=== PATIENT | female | born 1960 | race Caucasian/White ===

== ENCOUNTER 2020-03-31 09:53 | Emergency (ER) | payer OTHER ==
--- NOTE | 2020-03-31 10:42 | ERPHSYRPT ---
- History of Present Illness Source: patient Exam Limitations: no limitations Patient Subjective Stated Complaint: fever, cough, headache Triage Nursing Assessment: Pt was brought to the ER by her , hypertensive, cough with light yellow sputum, chest hurts from coughing, pulses normal, rates overall pain as 2/10, diaphoretic Physician History: 59 yo wf w fever/nonproductive cough/PRETTY x 2days. Pt denies Covid exposure/N/V/D/dysuria/hematuria/dyspnea. Timing/Duration: other (2 days) Cough Quality/Degree: dry cough Possible Cause: no prior episodes Modifying Factors: Improves With: nothing Associated Symptoms: fever, chills, cough, headache, muscle aches, No chest pain/soreness, No dizziness, No earache, No facial pain, No lightheadedness, No nasal congestion, No nasal drainage, No shortness of breath, No sinus infection, No sore throat, No wheezing Allergies/Adverse Reactions: amoxicillin [From Augmentin] Adverse Reaction (Verified 03/31/20 10:14) clavulanic acid [From Augmentin] Adverse Reaction (Verified 03/31/20 10:14) Home Medications: Aspirin EC 81 mg [Ecotrin 81 mg] 81 mg PO DAILY 03/31/20 [History] Cetirizine HCl [Zyrtec] 10 mg PO DAILY 03/31/20 [History] Cholecalciferol (Vitamin D3) [Vitamin D3] 1 tab PO DAILY 03/31/20 [History] Losartan Potassium [Cozaar] 25 mg PO DAILY 03/31/20 [History] Montelukast Sodium 10 mg [Singulair 10 MG] 10 mg PO DAILY 03/31/20 [History] Omeprazole 40 mg PO BID 03/31/20 [History] hydroCHLOROthiazide [Hydrochlorothiazide] 25 mg PO DAILY 03/31/20 [History] Travel Risk - International Travel Have you traveled outside of the country in past 3 weeks: No - Coronavirus Screening Are you exhibiting any of the following symptoms?: No Close contact with a COVID-19 positive Pt in past 14-21 Days: No - Review of Systems Constitutional: No Symptoms, Fever, Chills Eyes: No Symptoms Ears, Nose, & Throat: No Symptoms Respiratory: Cough Cardiac: No Symptoms Abdominal/Gastrointestinal: No Symptoms Genitourinary Symptoms: No Symptoms Musculoskeletal: No Symptoms Skin: No Symptoms Neurological: No Symptoms Psychological: No Symptoms Endocrine: No Symptoms Hematologic/Lymphatic: No Symptoms Immunological/Allergic: No Symptoms - Past Medical History Pertinent Past Medical History: Yes Neurological History: No Pertinent History Cardiac History: Arrhythmia Respiratory History: No Pertinent History Endocrine Medical History: No Pertinent History Musculoskeletal History: No Pertinent History Other Medical History: uses CPAP or BiPAP - Past Surgical History Past Surgical History: Yes Gastrointestinal: Cholecystectomy Female Surgical History: Hysterectomy - Social History Smoking Status: Never smoker Exposure to second hand smoke: No Drug Use: none Patient Lives Alone: No - Female History Hx Now: No - Nursing Vital Signs Nursing Vital Signs: Initial Vital Signs Temperature 99.8 F 03/31/20 10:05 Pulse Rate 76 03/31/20 10:05 Blood Pressure 175/86 03/31/20 10:05 O2 Sat by Pulse Oximetry 97 03/31/20 10:05 Pain Scale Pain Intensity 2 - Physical Exam General Appearance: no apparent distress Eye Exam: PERRL/EOMI, eyes nml inspection, No scleral icterus, No pale conjunctivae, No photophobia Ears, Nose, Throat Exam: normal ENT inspection, TMs normal, pharynx normal, moist mucous membranes, No dry mucous membranes Neck Exam: normal inspection, non-tender, No meningismus, No mass, No Brudzinski, No Kernig's, No carotid bruit Respiratory Exam: normal breath sounds, lungs clear, airway intact, No respiratory distress Cardiovascular Exam: regular rate/rhythm, normal heart sounds, normal peripheral pulses, No murmur Back Exam: normal inspection, normal range of motion Extremity Exam: normal inspection, normal range of motion Neurologic Exam: alert, oriented x 3, cooperative, 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, normal mood/affect, nml cerebellar function SpO2: 97 - Course Nursing assessment & vital signs reviewed: Yes - Radiology Exams Chest X-ray Interpretation: Discussed w/ radiologist (NAD) Ordered Tests: Active Orders 24 hr Category Date Time Status CHEST 1 VIEW (PORTABLE) Stat Exams 03/31/20 10:30 Completed INFLUENZA A+B KOURTNEY Stat Lab 03/31/20 10:27 Completed Lab/Rad Data: Laboratory Results 03/31/20 03/31/20 Range/Units Unknown 10:27 Influenza Type A Ag NEGATIVE (NEGATIVE) Influenza Type B Ag NEGATIVE (NEGATIVE) Group A Strep Antibody NOT DETECTED (NEGATIVE) - Progress Air Movement: fair Progress Note: 03/31/20 11:36 Strep/flu neg Covid pending Blood Culture(s) Obtained: No Counseled pt/family regarding: diagnosis, need for follow-up, rad results - Departure Departure Disposition: Home Clinical Impression: Cough Condition: Stable Critical Care Time: No Referrals: JUAN J KING [Primary Care Provider] - Instructions: Cough, Adult (DC), Fever, Adult (DC) Additional Instructions: Your Covid test is pending Quarantine for 14 days Return to ER for worsening cough/shortness of breath/Temperature greater than 100.5 Prescriptions: Doxycycline Monohydrate 100 mg PO BID #14 tablet Hydrocodone/Chlorphen Polis [Tussionex Pennkinetic Susp] 5 ml PO BID PRN PRN #30 ml PRN Reason: Cough
--- NOTE | 2020-03-31 11:15 | XRAY ---
Indication: Cough. Suspect Covid 19. Comparison: None Portable chest demonstrates normal heart and lungs with scattered tiny calcified granulomas. Bony thorax intact with minimal levoscoliosis.
[2020-03-31 11:18] LABS: INFLUENZA A NEGATIVE (NEGATIVE); INFLUENZA B NEGATIVE (NEGATIVE)
[2020-03-31 11:43] VITALS: BP 150/74; PULSE 64
[2020-03-31 11:45] VITALS: O2SAT 97
== END 2020-03-31 11:58 | disposition home or self-care (01) ==
LOC: ED 09:53
DX: R05 Cough (principal); R50.9 Fever, unspecified; R51.9 Headache, unspecified; Z79.899 Other long term (current) drug therapy
CPT/HCPCS: 71045; 87400; 87651; 99284; U0003

== ENCOUNTER 2024-07-07 20:25 | Emergency (ER) | payer OTHER ==
[2024-07-07 20:41] VITALS: TEMP 97.9; O2SAT 93
--- NOTE | 2024-07-07 20:43 | ERPHSYRPT ---
- History of Present Illness Source: patient Exam Limitations: no limitations Patient Subjective Stated Complaint: "I've been sick since last Tuesday with cough, fever, and body aches." Triage Nursing Assessment: Pt presents to ER with complaints of continuous dry hacking cough, fever, body aches, and chills since 06/29/24. Was seen in clinic on Tuesday and given Bactrim and nasal spray Rx. Pt complains of headache from coughing. Pt is alert and oriented x 3. Skin is pink, warm, and dry. Respirations slightly labored. Lungs noted to have slight wheezing on exhalation. States has vomited twice since yesterday, believes it's from how hard she was coughing. Physician History: Patient's had a cough for about a week. She is also had fever. Her cough is getting worse. Is nonproductive and dry. She had a temperature of 100 and for 1 day. She went to her primary doctor and they treated her with Bactrim and Flonase. She has not improved. She says she is low bit short of breath with exertion. She has not had any chest pain or abdominal pain.She did have some episodes of nausea and vomiting earlier in the week but it is resolved. She has some generalized malaise myalgias. Allergies/Adverse Reactions: azithromycin Adverse Reaction (Intermediate, Verified 07/07/24 20:41) skin peels on fingers doxycycline Adverse Reaction (Intermediate, Verified 07/07/24 20:41) skin peels off fingers. amoxicillin [From Augmentin] Adverse Reaction (Verified 07/07/24 20:41) clavulanic acid [From Augmentin] Adverse Reaction (Verified 07/07/24 20:41) Home Medications: Aspirin EC 81 mg [Ecotrin 81 mg] 81 mg PO DAILY 03/31/20 [History] Cetirizine HCl [Zyrtec] 10 mg PO DAILY 03/31/20 [History] Cholecalciferol (Vitamin D3) [Vitamin D3] 1 tab PO WEEKLY 03/31/20 [History] Losartan Potassium [Cozaar] 50 mg PO DAILY 03/31/20 [History] Omeprazole 20 mg PO BID 03/31/20 [History] hydroCHLOROthiazide [Hydrochlorothiazide] 25 mg PO DAILY 03/31/20 [History] estradioL [Estradiol (Once Weekly)] 1 each TD WEEKLY 01/31/23 [History] Smz/Tmp Ds Tablet [Bactrim Ds Tablet] 1 tab PO BID 07/07/24 [History] Hx Tetanus, Diphtheria Vaccination/Date Given: No Hx Influenza Vaccination/Date Given: No Hx Pneumococcal Vaccination/Date Given: No Immunizations Up to Date: No Travel Risk - International Travel Have you traveled outside of the country in past 3 weeks: No - Emerging Infectious Disease Are you exhibiting symptoms associated with any current EIDs: Yes Symptoms: Cough: New Onset, Fever, Headaches/Body Aches/ - Review of Systems Constitutional: Fever, Chills, Fatigue, Malaise Eyes: No Symptoms Respiratory: Cough Cardiac: No Symptoms Musculoskeletal: No Symptoms Skin: No Symptoms Neurological: No Symptoms - Past Medical History Pertinent Past Medical History: Yes Neurological History: No Pertinent History ENT History: No Pertinent History Cardiac History: Arrhythmia, Hypertension Respiratory History: No Pertinent History Endocrine Medical History: No Pertinent History Musculoskeletal History: No Pertinent History GI Medical History: No Pertinent History History: No Pertinent History Female Reproductive Disorders: No Pertinent History Other Medical History: uses CPAP or BiPAP - Past Surgical History Past Surgical History: Yes Neuro Surgical History: No Pertinent History Cardiac: No Pertinent History Respiratory: No Pertinent History Gastrointestinal: Cholecystectomy Genitourinary: No Pertinent History Musculoskeletal: No Pertinent History Female Surgical History: Hysterectomy - Social History Smoking Status: Never smoker Exposure to second hand smoke: No Drug Use: none - Social Determinants of Health Will the patient participate in the screening: Yes Do you worry about a steady place to live?: No Do you have any problems with any of the following?: No known problems In the past 12 months,have you had to go without utilities?: No Transportation Issues: No Has anyone in your support network made you feel unsafe?: No Have you or anyone in your house had to go w/o enough food: No - Nursing Vital Signs Nursing Vital Signs: Initial Vital Signs Temperature 97.9 F 07/07/24 20:31 Pulse Rate 104 H 07/07/24 20:31 Respiratory Rate 18 07/07/24 20:31 Blood Pressure 162/79 07/07/24 20:31 O2 Sat by Pulse Oximetry 95 07/07/24 20:31 Pain Scale Pain Intensity 0 - Physical Exam General Appearance: no apparent distress Eye Exam: PERRL/EOMI, eyes nml inspection Ears, Nose, Throat Exam: normal ENT inspection, TMs normal, pharynx normal Neck Exam: normal inspection, non-tender Respiratory Exam: normal breath sounds, chest tenderness Cardiovascular Exam: regular rate/rhythm, normal heart sounds Gastrointestinal/Abdomen Exam: soft, normal bowel sounds, No tenderness Back Exam: normal inspection Extremity Exam: normal inspection Neurologic Exam: alert Skin Exam: normal color, warm SpO2: 93 - Course Nursing assessment & vital signs reviewed: Yes Ordered Tests: Active Orders 24 hr Category Date Time Status CHEST 1 VIEW (PORTABLE) Stat Exams 07/07/24 20:41 Taken Lab/Rad Data: Laboratory Results 07/07/24 Range/Units 20:45 Influenza Type A Ag POSITIVE A (NEGATIVE) Influenza Type B Ag NEGATIVE (NEGATIVE) RSV (PCR) NEGATIVE (NEGATIVE) SARS-CoV-2 (PCR) NEGATIVE (NEGATIVE) - Progress Progress: re-examined, unchanged Air Movement: good Progress Note: Patient was stable throughout stay. X-ray was done it was independently interpreted by me. There is no acute findings. On the differential diagnosis was bronchitis, pneumonia, flu, RSV, COVID.She tested positive for flu. What is going to treat symptomatically with Tessalon and Tylenol and Advil and fluids 07/07/24 21:37 - Departure Departure Disposition: Home Clinical Impression: Influenza Condition: Stable Critical Care Time: No Referrals: JUAN J KING [Primary Care Provider] - Follow up/PCP as directed Instructions: Flu in adults - ED discharge instructions
[2024-07-07 21:24] LABS: INFLUENZA B NEGATIVE (NEGATIVE); RESPIRATORY SYNCTIAL VIRUS NEGATIVE (NEGATIVE); SARS-CoV-2 Xpert Express NEGATIVE (NEGATIVE)
[2024-07-07 21:27] LABS: INFLUENZA A POSITIVE (NEGATIVE)
[2024-07-07 21:50] VITALS: BP 125/47; PULSE 87; RESP 20
[2024-07-07] MEDS ORDERED: Tessalon Perles 100 MG PO PRN (22:01)
[2024-07-07] MEDS ORDERED: Tessalon Perles 100 MG PO ONE (22:04)
[2024-07-07] MEDS ORDERED: DECADRON 10MG INJ. ONE (22:04)
[2024-07-07] MEDS: Tessalon Perles 100 MG PO PRN (22:10)
[2024-07-07] MEDS: DECADRON 10MG INJ. IM ONE (22:11)
--- NOTE | 2024-07-08 06:28 | XRAY ---
Indication: Cough. Comparison: January 31, 2023 Portable chest remains inflated and clear again with incidental calcified granulomas. Heart not enlarged for AP portable technique. Bony thorax intact. No new/acute findings.
== END 2024-07-07 22:15 | disposition home or self-care (01) ==
LOC: ED 20:25
DX: J10.1 Influenza due to other identified influenza virus with other respiratory manifestations (principal); R05.1 Acute cough; R50.9 Fever, unspecified; M79.10 Myalgia, unspecified site; I10 Essential (primary) hypertension; Z79.899 Other long term (current) drug therapy
CPT/HCPCS: 0241U; 71045; 99284; J1100; A9270-GY

== ENCOUNTER 2024-07-16 10:04 | Emergency (ER) | payer OTHER ==
--- NOTE | 2024-07-16 10:09 | ERPHSYRPT ---
- History of Present Illness Time Seen by Provider: 07/16/24 10:09 Source: patient, family Exam Limitations: no limitations Physician History: This is an obese 64-year-old white female patient who arrives by private vehicle and is a patient of Dr. Davide King. She was seen here in our emergency department on 07/07/2024 and diagnosed with influenza A. She was given Tessalon Perles which did not help her and therefore she was given Tussionex which did help her cough. However, her cough has persisted and she is mildly short of breath. Her room air oxygen saturation level on arrival to the emergency department is 95%. The patient is concerned that she might have a pneumonia and only wants a chest x-ray. She is not having any chest pain. Patient does have a history of hypertension, gastroesophageal reflux disease, seasonal allergy and occasionally uses CPAP at home. She has a history of arrhythmia. Timing/Duration: day(s) (9 to 10 days), other (Not improved) Severity of Dyspnea-Max: mild Severity of Dyspnea-Current: mild Possible Cause: occasional episodes Modifying Factors: Improves With: albuterol nebulizer (Proved her symptoms), coughing Associated Symptoms: cough, No chest pain/discomfort Allergies/Adverse Reactions: azithromycin Adverse Reaction (Intermediate, Verified 07/07/24 20:41) skin peels on fingers doxycycline Adverse Reaction (Intermediate, Verified 07/07/24 20:41) skin peels off fingers. amoxicillin [From Augmentin] Adverse Reaction (Verified 07/07/24 20:41) clavulanic acid [From Augmentin] Adverse Reaction (Verified 07/07/24 20:41) Home Medications: Aspirin EC 81 mg [Ecotrin 81 mg] 81 mg PO DAILY 03/31/20 [History] Cetirizine HCl [Zyrtec] 10 mg PO DAILY 03/31/20 [History] Cholecalciferol (Vitamin D3) [Vitamin D3] 1 tab PO WEEKLY 03/31/20 [History] Losartan Potassium [Cozaar] 50 mg PO DAILY 03/31/20 [History] Omeprazole 20 mg PO BID 03/31/20 [History] hydroCHLOROthiazide [Hydrochlorothiazide] 25 mg PO DAILY 03/31/20 [History] estradioL [Estradiol (Once Weekly)] 1 each TD WEEKLY 01/31/23 [History] Hx Tetanus, Diphtheria Vaccination/Date Given: No Hx Influenza Vaccination/Date Given: No Hx Pneumococcal Vaccination/Date Given: No Travel Risk - International Travel Have you traveled outside of the country in past 3 weeks: No - Emerging Infectious Disease Are you exhibiting symptoms associated with any current EIDs: Yes Symptoms: Cough: New Onset, Fever, Headaches/Body Aches/ - Review of Systems Constitutional: No Symptoms Eyes: No Symptoms Ears, Nose, & Throat: No Symptoms Respiratory: Cough, Dyspnea (Mild) Cardiac: No No Symptoms Abdominal/Gastrointestinal: No Symptoms Genitourinary Symptoms: No Symptoms Musculoskeletal: No Symptoms Skin: No Symptoms Neurological: No Symptoms Psychological: No Symptoms Endocrine: No Symptoms Hematologic/Lymphatic: No Symptoms Immunological/Allergic: No Symptoms All Other Systems: Reviewed and Negative - Past Medical History Pertinent Past Medical History: Yes Neurological History: No Pertinent History ENT History: No Pertinent History Cardiac History: Arrhythmia, Hypertension Respiratory History: No Pertinent History Endocrine Medical History: No Pertinent History Musculoskeletal History: No Pertinent History GI Medical History: No Pertinent History History: No Pertinent History Female Reproductive Disorders: No Pertinent History Other Medical History: uses CPAP or BiPAP - Past Surgical History Past Surgical History: Yes Neuro Surgical History: No Pertinent History Cardiac: No Pertinent History Respiratory: No Pertinent History Gastrointestinal: Cholecystectomy Genitourinary: No Pertinent History Musculoskeletal: No Pertinent History Female Surgical History: Hysterectomy - Social History Smoking Status: Never smoker Exposure to second hand smoke: No Drug Use: none - Social Determinants of Health Will the patient participate in the screening: Yes Do you worry about a steady place to live?: No In the past 12 months,have you had to go without utilities?: No Transportation Issues: No Has anyone in your support network made you feel unsafe?: No Have you or anyone in your house had to go w/o enough food: No - Nursing Vital Signs Nursing Vital Signs: Initial Vital Signs Temperature 98.6 F 07/16/24 10:05 Pulse Rate 72 07/16/24 10:05 Respiratory Rate 20 07/16/24 10:05 Blood Pressure 167/90 07/16/24 10:05 O2 Sat by Pulse Oximetry 95 07/16/24 10:05 Pain Scale Pain Intensity 0 - Physical Exam General Appearance: no apparent distress, alert, anxiety, obese Eye Exam: PERRL/EOMI, eyes nml inspection Ears, Nose, Throat Exam: hearing grossly normal, normal ENT inspection, normal pharynx Neck Exam: normal inspection, non-tender, supple, full range of motion Respiratory Exam: normal breath sounds, lungs clear, airway intact, No chest tenderness, No respiratory distress Cardiovascular/Chest Exam: normal heart sounds, regular rate/rhythm Abdominal/Gastrointestinal Exam: soft, normal bowel sounds, No tenderness Rectal Exam: not done Extremity Exam: non-tender, normal range of motion, normal inspection, normal capillary refill, no calf tenderness, no pedal edema, pelvis stable Skin Exam: normal color, warm, dry Lymphatic Exam: No adenopathy SpO2 Interpretation: normal O2 Delivery: Room Air - Course Nursing assessment & vital signs reviewed: Yes EKG Interpreted by Me: RATE (70), Sinus Rhythm, NORMAL INTERVALS, NORMAL QRS, Other (Indeterminate axis deviation. QTc is 464. No acute ischemia on today's twelve-lead EKG.) Ordered Tests: Active Orders 24 hr Category Date Time Status CHEST 1 VIEW (PORTABLE) Stat Exams 07/16/24 10:31 Completed Respiratory Therapy Assessment DAILY RT 07/16/24 10:41 Active Medication Summary Discontinued Medications Generic Name Dose Route Start Last Admin Trade Name Freq PRN Reason Stop Dose Admin Albuterol/Ipratropium 3 ml 07/16/24 10:37 07/16/24 10:41 Ipratropium/Albuterol Sulfate 3 Ml Ampul.Neb IH 07/16/24 10:38 3 ml STAT ONE Administration Albuterol/Ipratropium Confirm 07/16/24 10:36 Ipratropium/Albuterol Sulfate 3 Ml Ampul.Neb Administered 07/16/24 10:37 Dose 3 ml IH .STK-MED ONE Ceftriaxone Sodium 1,000 mg 07/16/24 11:12 Ceftriaxone Sodium 1000 Mg Inj Vial IM 07/16/24 11:13 STAT ONE Methylprednisolone Sodium 0 mg 07/16/24 11:12 Succinate 125 mg/ Sterile IM 07/16/24 11:13 Water 2 ml STAT ONE - Progress Progress: improved, re-examined Air Movement: fair Progress Note: 07/16/24 11:20 My medical decision making of the assignment of low complexity of this patient's medical issue today based on review of the patient's past medical history, review of the patient's medication list, review of the patient drug allergy list, this presents and physical findings on examination. The workup in this patient is based on our discussion together. She only wants a chest x-ray to determine whether or not she has a pneumonia. Will have respiratory therapy provide her with nebulizer treatment. Differential diagnosis includes but is not limited to upper respiratory infection, pneumonia, CHF The final report of the chest x-ray was interpreted by the radiologist and I reviewed the impression. Impression states new left hazy interstitial alveolar opacities without consolidation or large effusion. 07/16/24 11:26 Respiratory therapy provided the patient with a nebulizer treatment. Her room air oxygen saturation level has increased to 97%. Blood Culture(s) Obtained: No Antibiotics given: Yes Counseled pt/family regarding: diagnosis, need for follow-up, rad results Medical Desision Making - Diagnostic Testing Diagnostic test were ordered, analyzed, and reviewed by me: Yes Radiological Interpretation: Reviewed by me, Teleradiologist Report - Risk of complications The pt has a mod risk of morbidity or mortality based on: Need for prescription drug management - Departure Departure Disposition: Home Clinical Impression: Left pulmonary infiltrate on CXR Condition: Stable Critical Care Time: No Referrals: JUAN J KING [Primary Care Provider] - Follow up/PCP as directed Additional Instructions: Drink plenty of clear liquids and advance your diet slowly. Avoid exposure to any type of smoke. Take your steroids and antibiotics as prescribed. Continue to use your cough medicine. Use your inhaler as prescribed. Call your primary care provider today, 07/16/2024, to make arrangements for a follow-up visit and to obtain refills on your cough medicine and other medications if needed. Prescriptions: Prednisone 10 mg [Deltasone 10 mg] 10 mg PO TID #12 tablet Levofloxacin [Levaquin 500 MG Tablet] 500 mg PO DAILY #7 tablet Albuterol 8 gm Mdi Hfa [Ventolin Hfa MDI] 8 gm IH Q4H #1 unit
[2024-07-16 10:11] VITALS: TEMP 98.6
[2024-07-16] MEDS ORDERED: DUONEB 0.5-3 MG/3 ml Neb IH ONE (10:36)
[2024-07-16] MEDS: DUONEB 0.5-3 MG/3 ml Neb IH ONE (10:41)
--- NOTE | 2024-07-16 10:55 | XRAY ---
Indication: Cough. Positive influenza. Comparison: July 07, 2024 Portable chest demonstrates new left lower lobe hazy interstitial alveolar opacities without consolidation/large effusion. Remaining heart and lungs unremarkable again with incidental scattered calcified granulomas.
[2024-07-16] MEDS ORDERED: solu-MEDROL ONE (11:36)
[2024-07-16] MEDS ORDERED: Rocephin 1000 MG INJ ONE (11:36)
[2024-07-16] MEDS ORDERED: Sterile H2O 10 ml IJ ONE (11:36)
[2024-07-16] MEDS ORDERED: XYLOCAINE 1% HCL 20 ML MDV ONE (11:36)
[2024-07-16] MEDS: Rocephin 1000 MG INJ IM ONE (11:37)
[2024-07-16] MEDS: solu-MEDROL 125 MG, Sterile H2O 10 ml 2 ML IM ONE (11:39)
[2024-07-16 11:42] VITALS: BP 146/79; PULSE 61; RESP 11; O2SAT 93
== END 2024-07-16 11:51 | disposition home or self-care (01) ==
LOC: ED 10:04
DX: R91.8 Other nonspecific abnormal finding of lung field (principal); R05.1 Acute cough; R06.02 Shortness of breath; I10 Essential (primary) hypertension; Z79.52 Long term (current) use of systemic steroids; Z79.899 Other long term (current) drug therapy
CPT/HCPCS: 71045; 94640; 96372; 99283; 99285; J0696; J2919; A9270-GY

== ENCOUNTER 2025-01-29 05:59 | Day surgery (SDC) | payer OTHER ==
[2025-01-29 06:50] VITALS: RESP 18
[2025-01-29] MEDS: TYLENOL EXTRA STRENGTH 500 MG PO ONE (06:57)
[2025-01-29] MEDS: NEURONTIN PO ONE (06:57)
[2025-01-29] MEDS: Decadron 4 MG PO ONE (06:57)
[2025-01-29] MEDS: Lactated Ringers 1,000 ML IV SCH ×2 (06:58→07:16)
[2025-01-29] MEDS: Pepcid 20 MG PO ONE (06:58)
[2025-01-29] MEDS: celeBREX 100 MG PO ONE (06:58)
[2025-01-29] MEDS: Transderm Scop 1.5MG Patch TOP ONE (06:58)
[2025-01-29] MEDS: KEFZOL 1 GM** 3 G in Sodium Chloride 0.9% 50 ML 50 ML IV ONE (07:07)
[2025-01-29 07:50] LABS: Calcium 9.6 mg/dL (8.4-10.2); Carbon Dioxide 29.0 mmol/L (22-30); Creatinine 1 0.76 mg/dL (0.52-1.04); EST GLOMERULAR FILTRATION RATE 87.5 ML/MIN; Glucose 104.0 mg/dL (74-106); Potassium 3.9 mmol/L (3.5-5.1); SGOT/AST 38.0 U/L (14-36); SGPT/ALT 32.0 U/L (0-35); Total Protein 7.7 g/dL (6.3-8.2)
[2025-01-29] MEDS ORDERED: PITRESSIN 20 UNITS ONE (08:31)
[2025-01-29] MEDS ORDERED: propofoL IV ONE (08:34)
[2025-01-29] MEDS ORDERED: SUBLIMAZE 100 MCG/2 ML ONE (08:34)
[2025-01-29] MEDS ORDERED: Xylocaine-Mpf 2% 5 Ml Vial ONE (08:34)
[2025-01-29] MEDS ORDERED: Zofran 4 MG/2 ML VIAL ONE (08:34)
[2025-01-29] MEDS ORDERED: Versed 2 MG/2 ML Injection ONE (08:34)
[2025-01-29] MEDS ORDERED: Ephedrine Sulfate 50 MG/ML ONE (08:55)
[2025-01-29 10:46] VITALS: TEMP 96.4
[2025-01-29 10:47] VITALS: BP 149/63; PULSE 81; O2SAT 98
--- NOTE | 2025-01-31 10:24 | OP ---
SURGERY DATE/TIME: 01/29/2025 [id number] PREOPERATIVE DIAGNOSIS: Stress incontinence. POSTOPERATIVE DIAGNOSIS: Stress incontinence. PROCEDURE: Placement of Altis bladder sling and cystoscopy. SURGEON: Travis Bowen DO COST ESTIMATING MANAGER: Venecia Griffin ANESTHESIA: General. ESTIMATED BLOOD LOSS: Minimal. COMPLICATIONS: None. INDICATIONS: The risks, benefits, indications, and alternatives of the procedure were reviewed with the patient prior to the procedure. The patient understood the risks of infection, bleeding, bowel injury, bladder injury, ureteral injury, continued incontinence, mesh erosion, dyspareunia, groin discomfort, thromboembolic disorder associated with this surgery and desires to have this procedure as a possible means to alleviate her current medical condition. DESCRIPTION OF PROCEDURE AND FINDINGS: At this point, the patient was taken to the operating room, given general sedation, placed in the dorsal lithotomy position, prepped and draped in the usual sterile fashion. A weighted speculum was then placed in the patient's vagina and at this point diluted vasopressin was used to dilute the anterior vaginal mucosa where approximately 30 mL of diluted vasopressin was used. A vertical vaginal incision of approximately 1.5 cm was made just distal to the urethra where at this point the ernesto-urethral space was dissected bilaterally using sharp and blunt dissection to create a tract toward the obturator internus fascia on each side. The Altis Single Incision Sling System was then prepared. The static anchor was then introduced first on the surgeon's right side using the curved helical introducer and deployed into the obturator internus fascia. The dynamic anchor was then deployed on the left side in a similar fashion. Both anchors deployed with tactile and audible confirmation. The sling was then adjusted to lie flat beneath the mid urethra without tension at this point. From this point, a cystoscope was inserted into the bladder to evaluate for any injury and both ureteral orifices were visualized with normal efflux. No evidence of bladder or urethral injury was seen. At this point, hemostasis was obtained and the anterior vaginal mucosa was then closed with a continuous stitch of 2-0 Vicryl suture and the Carpio was reinserted into the bladder. The patient tolerated the procedure well. Sponge, lap, needle, and instruments counts were correct x2. The patient was taken out of the dorsal lithotomy position, was taken out of anesthesia, and was taken to the recovery room in stable condition.
== END 2025-01-29 11:44 | disposition home or self-care (01) ==
LOC: SDC 05:59
PROVIDERS: ATTEND Obstetrics & Gynecology
DX: N39.3 Stress incontinence (female) (male) (principal); I10 Essential (primary) hypertension; E11.9 Type 2 diabetes mellitus without complications
CPT/HCPCS: 36415; 57288; 80053; 93005; C1771